=== PATIENT | female | born 1995 ===

== ENCOUNTER 2016-09-30 23:31 | Emergency (ER) | payer BC ==
[2016-10-01] MEDS ORDERED: Ibuprofen TAB* 600 MG PO ONE (00:19)
--- NOTE | 2016-10-01 00:39 | ED ---
Throat Pain/Nasal Congestion - HPI Summary HPI Summary: Pt here w/ 2 day h/o ST, swollen glands. Came in tonight because she felt like her throat was touching itself when she was lying down and swallowed. No trouble breathing. Has had subjective fever - denies congestions, sneezing, coughing, rash, ab pain, N/V/D, myalgias, arthralgias. States she has runny nose all the time. Does have some ear discomfort. Did not have influenza vaccine. Meningitis vaccine in 2012. No known sick contacts although she has heard people on campus talking about having ST's. Would like to be tested for mono. - History of Current Complaint Chief Complaint: EDThroatPain Time Seen by Provider: 09/30/16 23:59 Hx Obtained From: Patient - Allergies/Home Medications Allergies/Adverse Reactions: Allergies Allergy/AdvReac Type Severity Reaction Status Date / Time No Known Allergies Allergy Verified 09/30/16 23:46 PMH/Surg Hx/FS Hx/Imm Hx Previously Healthy: Yes Endocrine/Hematology History: Denies: Hx Thyroid Disease, Autoimmune Disease Respiratory History: Denies: Hx Asthma, Hx Seasonal Allergies - Immunization History Date of Tetanus Vaccine: utd Date of Influenza Vaccine: none Infectious Disease History: No Infectious Disease History: Denies: History Other Infectious Disease - mono, Traveled Outside the [place] in Last 30 Days - Family History Known Family History: Positive: None - Social History Occupation: Employed Full-time Lives: With Family Alcohol Use: Weekly Hx Substance Use: No Substance Use Type: Reports: None Hx Tobacco Use: No Smoking Status (MU): Never Smoked Tobacco Review of Systems Constitutional: Other - see HPI Negative: Drainage, Erythema ENT: Other - see HPI Negative: Chest Pain Negative: Shortness Of Breath, Cough Gastrointestinal: Negative Positive: no symptoms reported Negative: Arthralgia, Myalgia Negative: Rash Neurological: Negative Psychological: Normal All Other Systems Reviewed And Are Negative: Yes Physical Exam Triage Information Reviewed: Yes Vital Signs On Initial Exam: Initial Vitals Temp Pulse Resp BP Pulse Ox 98.0 F 66 16 124/84 100 09/30/16 23:35 09/30/16 23:35 09/30/16 23:35 09/30/16 23:35 09/30/16 23:35 Vital Signs Reviewed: Yes Appearance: Positive: Well-Appearing, No Pain Distress, Well-Nourished Skin: Positive: Warm, Dry Head/Face: Positive: Normal Head/Face Inspection Eyes: Positive: Normal, EOMI, Conjunctiva Clear. Negative: Conjunctiva Inflammed, Discharge ENT: Positive: Normal ENT inspection, Hearing grossly normal, Pharynx normal - patent w/o erythema, edema or exudates, TMs normal. Negative: Nasal congestion , Nasal drainage, Tonsillar swelling - tonsils +1 equal B/L, Tonsillar exudate Neck: Positive: Supple, Tenderness @ - deep and anterior cc LN's, Enlarged Nodes @ - shoddy Respiratory/Lung Sounds: Positive: Clear to Auscultation, Breath Sounds Present. Negative: Rales, Rhonchi, Stridor, Wheezes Cardiovascular: Positive: Normal, RRR Abdomen Description: Positive: Nontender, No Organomegaly, Soft. Negative: Splenomegaly Musculoskeletal: Positive: Normal, Strength/ROM Intact Neurological: Positive: Normal, Sensory/Motor Intact, Alert, Oriented to Person Place, Time, CN Intact II-III, Reflexes Intact Psychiatric: Positive: Normal - Maria Ines Coma Scale Coma Scale Total: 15 Diagnostics - Vital Signs Vital Signs Temp Pulse Resp BP Pulse Ox 09/30/16 23:35 98.0 F 62 16 124/84 100 - Laboratory Lab Statement: Any lab studies that have been ordered have been reviewed, and results considered in the medical decision making process. EENT Course/Dx - Course Course Of Treatment: Pt's swabs and mono lab are all negative for infection. Suspect she has early signs of a viral URI and/or allergy sx. Recommendations made and danger s/sx reviewed w/ pt. She had relief w/ ibuprofen and agrees w/ plan. - Diagnoses Provider Diagnoses: Pharyngitis Discharge - Discharge Plan Condition: Stable Disposition: HOME Patient Education Materials: Pharyngitis (ED) Referrals: [facility]ending [facility] To [facility] [Primary Care Provider] - Additional Instructions: You appear to have a viral pharyngitis. This may be treated with pain medications and anti-inflammatories (ie. acetaminophen, ibuprofen). You may also benfit from an anti-histamine (ie. benadryl, zyrtec, etc). You may conservative care as well: Nasal wash (netti pot) & throat gargle 2 x day with 8 ounces of warm water + 1/ 4 teaspoon of salt Drink 60+ ounces of water daily Sleep 8+ hours per night Avoid Dairy and sugar Hot herbal/decaf tea with lemon & honey Chicken broth (preferably organic, free range chicken) Humidifier in house, but especially near bed at night Try a facial steam with or without eucalyptus essential oil Consider taking Vitamin D3 5,000iu and Vitamin C 1,000mg every day during illness Follow-up with PCP if symptoms continue. If you have difficulty breathing or swallowing, return to ED
[2016-10-01] MEDS ORDERED: Ibuprofen TAB* 600 MG ONE (00:56)
[2016-10-01 01:30] LABS: Mono Internal Control QC Line Present
[2016-10-01 02:50] VITALS: BP 120/71
== END 2016-10-01 02:10 | disposition home or self-care (01) ==
LOC: ED 23:31
DX: J02.9 Acute pharyngitis, unspecified (principal)
CPT/HCPCS: 36415; 86308; 87502; 87651; 99283; A9270-GY